=== PATIENT | female | born 1995 | race Caucasian/White ===

== ENCOUNTER 2022-04-26 15:47 | Emergency (ER) | payer SELFPAY ==
[~2022-04-26] VITALS: Ht 154.9 cm; Wt 48.0 kg
[2022-04-26 15:53] VITALS: BP 128/89
[2022-04-26 16:00] VITALS: BP 105/80
[2022-04-26 16:15] VITALS: BP 104/64
[2022-04-26] MEDS ORDERED: VIBRAMYCIN100 M2 PO (17:26)
[2022-04-26] MEDS ORDERED: ULTRAM50 M1 PO (17:26)
[2022-04-26 17:41] VITALS: BP 104/64
== END 2022-04-26 18:05 | disposition home or self-care (01) | DRG 603 ==
LOC: ED 15:47
PROC: 0H98XZZ Drainage of Buttock Skin, External Approach (ICD-10-PCS; principal; 2022-04-26)
DX: L02.31 Cutaneous abscess of buttock (principal); B95.62 Methicillin resistant Staphylococcus aureus infection as the cause of diseases classified elsewhere

== ENCOUNTER 2022-06-22 18:54 | Emergency (ER) | payer SELFPAY ==
[~2022-06-22] VITALS: Ht 154.9 cm; Wt 50.0 kg
[~2022-06-22 18:54] MED LIST: ULTRAM50 M1 PO; VIBRAMYCIN100 M2 PO
[2022-06-22 19:04] VITALS: BP 110/74
[2022-06-22] MEDS ORDERED: VIBRAMYCIN100 M2 PO (19:42)
== END 2022-06-22 19:55 | disposition home or self-care (01) | DRG 603 ==
LOC: ED 18:54
DX: L03.116 Cellulitis of left lower limb (principal)